=== PATIENT | male | born 1980 | race Caucasian/White ===

== ENCOUNTER 2020-09-17 18:09 | Emergency (ER) | payer SELFPAY ==
[~2020-09-17] VITALS: Ht 188 cm; Wt 74.8 kg
--- NOTE | 2020-09-17 18:30 | NUR ---
CHEIKH GARDNER [phone] BROTHER.
--- NOTE | 2020-09-17 19:42 | NUR ---
NATE GARDNER [phone]
[2020-09-17] MEDS ORDERED: LORAZEPAM INJ 2 MG/ML VIAL ONE (20:08)
--- NOTE | 2020-09-17 20:08 | NUR ---
pt was taken to CT
--- NOTE | 2020-09-17 20:17 | NUR ---
back from ct
[2020-09-17] MEDS: LORAZEPAM INJ 2 MG/ML VIAL IV ONE (20:18)
[2020-09-17 20:21] LABS: BASOPHILS # (AUTO) 0.1 /CMM (0.0-0.2); BASOPHILS % (AUTO) 0.4 % (0.0-2.0); EOSINOPHILS % (AUTO) 0.1 % (0.0-6.0); HEMATOCRIT 45 % (39-51); HEMOGLOBIN 14.8 g/dL (13.5-17.5); LYMPHOCYTES # (AUTO) 0.7 /CMM (0.8-4.8); LYMPHOCYTES % (AUTO) 5.3 % (20.0-44.0); MEAN CORPUSCULAR HGB CONC 33 g/dl (31.0-36.0); MEAN CORPUSCULAR VOLUME 86 fL (80-96); MONOCYTES # (AUTO) 0.4 /CMM (0.1-1.30); MONOCYTES % (AUTO) 3.2 % (2.0-12.0); PLATELET COUNT (AUTO) 272 /CMM (150-450); RED BLOOD CELL COUNT(AUTO) 5.17 MIL/uL (4.5-6.0); WHITE BLOOD COUNT (AUTO) 13.1 K/uL (4.3-11.0)
[2020-09-17 20:35] LABS: CALCIUM, SERUM 9.8 mg/dL (8.5-10.1); CARBON DIOXIDE 23 mmol/L (21-32); CHLORIDE 100 mmol/L (98-107); CREATININE 1.3 mg/dL (0.6-1.3); GLUCOSE 138 mg/dL (74-106); POTASSIUM 3.7 mmol/L (3.5-5.1); SODIUM SERUM 138 mmol/L (136-145); UREA NITROGEN, BLOOD 15 mg/dL (7-18)
[2020-09-17 20:47] LABS: ALANINE AMINOTRANSFERASE 19 U/L (12-78); ALBUMIN 4.7 g/dL (3.4-5.0); ALKALINE PHOSPHATASE 81 U/L (46-116); ASPARTATE AMINOTRANSFERASE 21 U/L (15-37); BILIRUBIN,DIRECT 0.2 mg/dL (0.0-0.2); TOTAL PROTEIN, SERUM 8.3 g/dL (6.4-8.2)
[2020-09-17] MEDS ORDERED: KETOROLAC TROMETHAMINE INJ 30 MG/ML VIAL ONE (20:53)
[2020-09-17] MEDS: IV NS 0.9% 1,000 ML BAG IV ONE (20:59)
[2020-09-17] MEDS: KETOROLAC TROMETHAMINE INJ 30 MG/ML VIAL IV ONE (21:06)
--- NOTE | 2020-09-17 21:26 | NUR ---
ASKED PT FOR URINE SAMPLE MULTIPLE TIMES. PT REPORTED "THERE'S NOTHING THERE" WILL F/U
--- NOTE | 2020-09-17 21:27 | NUR ---
CORDELL RECIO AT BED SIDE
[2020-09-17 21:43] LABS: APPEARANCE,URINE CLEAR (CLEAR); BILIRUBIN,URINE NEGATIVE (NEGATIVE); BLOOD, URINE NEGATIVE Ery/uL (NEGATIVE); COLOR,URINE YELLOW (YELLOW); KETONES,URINE NEGATIVE (NEGATIVE); LEUKOCYTE ESTERASE ,URINE NEGATIVE (NEGATIVE); NITRITE, URINE NEGATIVE (NEGATIVE); PH,URINE 6.5 (5.0-8.0); PROTEIN,URINE NEGATIVE (NEGATIVE); UGLUCOSE NEGATIVE (NEGATIVE); UROBILINOGEN,URINE 0.2 EU/dL (0.2)
--- NOTE | 2020-09-17 22:59 | NUR ---
pt is medically stable for discharge. ambulatory w. stable gait. IV removed. Catheter intact and site benign. Pressure and 4x4 applied to site. No bleeding noted.Patient discharged to home in stable condition. Written and verbal after care instructions given. Patient verbalizes understanding of instruction.
[2020-09-17 23:05] VITALS: BP 129/75
== END 2020-09-17 23:05 | disposition home or self-care (01) ==
LOC: ER 18:30
DX: F41.9 Anxiety disorder, unspecified (principal); F32.9 Major depressive disorder, single episode, unspecified; R51.9 Headache, unspecified; R11.10 Vomiting, unspecified; R41.0 Disorientation, unspecified; R94.31 Abnormal electrocardiogram [ECG] [EKG]
CPT/HCPCS: 36415; 70450; 80048; 80076; 80307; 81001; 82962; 84484; 85025; 93005; 96361; 96374; 96375; 99285; J1885; J2060; J7030; 81000-TC